=== PATIENT | male | born 1955 | race Caucasian/White ===

== ENCOUNTER → 2017-08-06 | Outpatient (CLI) | payer MEDICAID ==
[~2017-08-06] MED LIST: AMLO5TAB2 PO; BUDE10.2 INH; IBUP200T64 PO; LISI-167 PO; OMEP10CA4 PO; ROFL500T PO; TIOT18CA INH
== END | disposition home or self-care (01) ==
LOC: CFH 14:00
PROVIDERS: ATTEND Internal Medicine
DX: J44.9 Chronic obstructive pulmonary disease, unspecified (principal); J84.10 Pulmonary fibrosis, unspecified; I25.10 Atherosclerotic heart disease of native coronary artery without angina pectoris; G47.33 Obstructive sleep apnea (adult) (pediatric)
CPT/HCPCS: 71250

== ENCOUNTER → 2017-11-17 | Outpatient (CLI) | payer MEDICAID | LOC: CFH 15:43 | PROVIDERS: ATTEND Nurse Practitioner | DX: E04.2 Nontoxic multinodular goiter (principal); R94.6 Abnormal results of thyroid function studies | CPT/HCPCS: 76536 ==

== ENCOUNTER → 2019-12-13 | Outpatient (CLI) | payer MEDICARE ==
[~2019-12-13] MED LIST changes: +AMLO-150 PO; -AMLO5TAB2 PO; -OMEP10CA4 PO; +OMEP10CA5 PO
== END | disposition home or self-care (01) ==
LOC: CFH 14:02
PROVIDERS: ATTEND Nurse Practitioner
DX: Z12.2 Encounter for screening for malignant neoplasm of respiratory organs (principal); R91.1 Solitary pulmonary nodule; J84.10 Pulmonary fibrosis, unspecified; Z87.891 Personal history of nicotine dependence
CPT/HCPCS: G0297

== ENCOUNTER → 2019-12-22 | Outpatient (CLI) | payer MEDICARE | END | disposition home or self-care (01) | LOC: CFH 13:17 | PROVIDERS: ATTEND Internal Medicine Cardiovascular Disease | DX: I35.1 Nonrheumatic aortic (valve) insufficiency (principal); I77.810 Thoracic aortic ectasia; Z85.46 Personal history of malignant neoplasm of prostate; Z87.891 Personal history of nicotine dependence | CPT/HCPCS: 93306 ==

== ENCOUNTER → 2020-06-07 | Outpatient (CLI) | payer MEDICARE | END | disposition home or self-care (01) | LOC: CFH 13:25 | PROVIDERS: ATTEND Nurse Practitioner | DX: J43.2 Centrilobular emphysema (principal); J84.10 Pulmonary fibrosis, unspecified; R91.1 Solitary pulmonary nodule | CPT/HCPCS: 71250 ==

== ENCOUNTER → 2020-06-26 | Outpatient (CLI) | payer MEDICARE | END | disposition home or self-care (01) | LOC: PETCFH 08:28 | PROVIDERS: ATTEND Nurse Practitioner | DX: R91.1 Solitary pulmonary nodule (principal); R91.8 Other nonspecific abnormal finding of lung field; K80.20 Calculus of gallbladder without cholecystitis without obstruction; K57.30 Diverticulosis of large intestine without perforation or abscess without bleeding | CPT/HCPCS: 78815; A9552 ==

== ENCOUNTER → 2020-09-24 | Outpatient (CLI) | payer MEDICARE | END | disposition home or self-care (01) | LOC: CFH 15:05 | PROVIDERS: ATTEND Nurse Practitioner Family | DX: J43.9 Emphysema, unspecified (principal); J98.4 Other disorders of lung; K80.20 Calculus of gallbladder without cholecystitis without obstruction; J84.10 Pulmonary fibrosis, unspecified | CPT/HCPCS: 71250 ==

== ENCOUNTER → 2021-01-06 | Outpatient (CLI) | payer MEDICARE | END | disposition home or self-care (01) | LOC: CFH 12:48 | PROVIDERS: ATTEND Internal Medicine | DX: R91.1 Solitary pulmonary nodule (principal); J43.9 Emphysema, unspecified | CPT/HCPCS: 71250 ==

== ENCOUNTER → 2021-03-27 | Outpatient (CLI) | payer MEDICARE | END | disposition home or self-care (01) | LOC: CVU 12:17 | PROVIDERS: ATTEND Internal Medicine Cardiovascular Disease | DX: I08.8 Other rheumatic multiple valve diseases (principal); I71.2 Thoracic aortic aneurysm, without rupture; I65.23 Occlusion and stenosis of bilateral carotid arteries; Z87.891 Personal history of nicotine dependence | CPT/HCPCS: 93306; 93880 ==